=== PATIENT | male | born 1960 ===

== ENCOUNTER 2023-10-30 14:53 | Emergency (ER) | payer OTHER, SELFPAY ==
[2023-10-30] VITALS (7 sets, daily range): BP systolic 112–123; BP diastolic 68–78; BMI 24.1
--- NOTE | 2023-10-30 14:57 | ED.GENMED ---
History of Present Illness
<Christi Pereira [employer]CH[employer] INSERTER - Last Filed: 10/30/23 18:55>
General
Chief Complaint: Chest Pain
Source: patient and ambulance crew
Exam Limitations: none
Time Seen by Provider: 10/30/23 14:56
Nursing documentation reviewed up to this point in time: agreed with
History of Present Illness
History of Present Illness:
63 yo male w h/o NIDDM presents from home via [facility] for chest pain. States at 12 noon he had 9/10 constant chest pain. Started when walking from car into home, mid chest pain that spread to entire chest area and to his back. EMS gave NTG x 1 tab and
324 mg baby asa en route and pt states pain is now only in mid chest 09/24. Denies n/v/d/c. Denies SOB. Denies feeling lightheaded, dizzy, denies weakness, numbness, tingling in extremities.
Past History
<Christi Pereira, [employer] INSERTER - Last Filed: 10/30/23 18:55>
Past History
ED Past Medical History: NIDDM and Other (currently being worked up for 'very small' kidney lesion/mass)
Social History
Tobacco: Non-smoker
Alcohol: None
Personal:
Living: with family
Employment: Retired
Review of Systems
<Christi Pereira, [employer] INSERTER - Last Filed: 10/30/23 18:55>
Review of Systems
Allergies reviewed?: Yes
All Other Systems: ROS reviewed and negative except as documented in HPI and ROS
Constitutional: Denies fever or fatigue
EENT: Denies sore throat
Respiratory: Denies trouble breathing
Cardiac: Reports chest pain and diaphoresis (skin moist on arrival); Denies palpitations or syncope
ABD/GI: Denies abdominal pain, nausea, vomiting or diarrhea
: Denies dysuria, difficulty voiding or urgency
Musculoskeletal: Reports no symptoms; Denies edema
Skin: Reports no symptoms
Neurological: Reports no symptoms
Phy Exam
<Christi Pereira, [employer] INSERTER - Last Filed: 10/30/23 18:55>
Physical Exam
Physical Exam:
GENERAL: No acute distress. A&Ox3.
CONSTITUTIONAL: Afebrile.
EYES: clear, conjunctivae normal
Neck: Supple
ENMT: moist mucus membranes, Pharynx nl
RESPIRATORY: Regular respirations, nonlabored, lungs clear.
CARDIOVASCULAR: Regular rate and rhythm, no murmurs, no rubs.
GI: Soft, nontender, normal BS
MUSCULOSKELETAL: Moves with ease. Well perfused.
SKIN: Warm, moist, normal.
PSYCH: Normal mood and affect. Well kept, interactive and appropriate
NEUROLOGIC: Awake, alert and oriented. No focal neurological deficits
Scores
<Christi Pereira, [employer] INSERTER - Last Filed: 10/30/23 18:55>
Heart Score for Chest Pain Patients
STEMI patient?: Not applicable
Course
<Christi Pereira, [employer] INSERTER - Last Filed: 10/30/23 18:55>
Orders/Labs/Results
Orders:
Orders
10/30/23 14:57
Electrocardiogram (*1) Stat
Reason for Study: Other
Other Reason for Exam: chest pain
EKG- Treatment ONCE
CR Chest - 2 Views Urgent
Comment:
Reason For Exam: chest pain
10/30/23 15:05
Complete Blood Count/With Diff Urgent
Comprehensive Metabolic Panel Urgent
NT-proBNP Urgent
PTT Urgent
Prothrombin Time Urgent
TSH Urgent
Troponin I Urgent
10/30/23 15:46
0.9% Sodium Chloride 1000 ml [Nss] 1,000 ml IV BOLUS
10/30/23 15:50
Mag Hydrox/Al Hydrox/Simeth [Maalox] 30 ml Phenobarb/Hyoscy/Atropine/Scop [] 10 ml Viscous Lidocaine 2% [Xylocaine Viscous Cup] 10 ml PO NOW
10/30/23 15:52
EKG- Treatment ONCE
Mag Hydrox/Al Hydrox/Simeth [Maalox] 30 ml .ROUTE .STK-MED ONE
Phenobarb/Hyoscy/Atropine/Scop [] 10 ml .ROUTE .STK-MED ONE
Viscous Lidocaine 2% [Xylocaine Viscous Cup] 15 ml .ROUTE .STK-MED ONE
10/30/23 16:56
Electrocardiogram (*1) Urgent
Reason for Study: Chest Pain
EKG- Treatment ONCE
10/30/23 17:01
Morphine Sulfate 2 mg IV NOW STA
10/30/23 17:35
Sucralfate [Carafate] 1 gram PO NOW STA
10/30/23 17:37
Pantoprazole [Protonix IV] 40 mg IV NOW STA
10/30/23 17:43
Troponin I Urgent
10/30/23 17:45
Electrocardiogram (*1) Urgent
Reason for Study: Chest Pain
10/30/23 18:54
Sucralfate [Carafate] 1 gram PO NOW STA
Abnormal Lab Results
10/30/23
15:05
Absolute Monos (auto) 0.7 H 10^3/uL
(0.1-0.6)
BUN 24 H mg/dl
(9-20)
Glucose 157 H mg/dl
(70-99)
Total Bilirubin 1.7 H mg/dl
(0.2-1.3)
10/30/23 15:05
10/30/23 15:05
Vital Signs
Initial and Last Documented VS:
Initial Vital Signs
Temp Pulse Resp BP Pulse Ox
98.8 F 88 20 122/78 94
10/30/23 14:58 10/30/23 14:58 10/30/23 14:58 10/30/23 14:58 10/30/23 14:58
Last Documented Vital Signs
Temp Pulse Resp BP Pulse Ox
98.8 F 67 19 114/73 97
10/30/23 14:58 10/30/23 18:30 10/30/23 18:30 10/30/23 18:00 10/30/23 18:30
<Elvia Mason MD - Last Filed: 10/30/23 17:35>
Orders/Labs/Results
Orders:
Orders
10/30/23 14:57
Electrocardiogram (*1) Stat
Reason for Study: Other
Other Reason for Exam: chest pain
EKG- Treatment ONCE
CR Chest - 2 Views Urgent
Comment:
Reason For Exam: chest pain
10/30/23 15:05
Complete Blood Count/With Diff Urgent
Comprehensive Metabolic Panel Urgent
NT-proBNP Urgent
PTT Urgent
Prothrombin Time Urgent
TSH Urgent
Troponin I Urgent
10/30/23 15:46
0.9% Sodium Chloride 1000 ml [Nss] 1,000 ml IV BOLUS
10/30/23 15:50
Mag Hydrox/Al Hydrox/Simeth [Maalox] 30 ml Phenobarb/Hyoscy/Atropine/Scop [] 10 ml Viscous Lidocaine 2% [Xylocaine Viscous Cup] 10 ml PO NOW
10/30/23 15:52
EKG- Treatment ONCE
Mag Hydrox/Al Hydrox/Simeth [Maalox] 30 ml .ROUTE .STK-MED ONE
Phenobarb/Hyoscy/Atropine/Scop [] 10 ml .ROUTE .STK-MED ONE
Viscous Lidocaine 2% [Xylocaine Viscous Cup] 15 ml .ROUTE .STK-MED ONE
10/30/23 16:56
Electrocardiogram (*1) Urgent
Reason for Study: Chest Pain
EKG- Treatment ONCE
10/30/23 17:01
Morphine Sulfate 2 mg IV NOW STA
10/30/23 17:35
Sucralfate [Carafate] 1 gram PO NOW STA
10/30/23 17:37
Pantoprazole [Protonix IV] 40 mg IV NOW STA
10/30/23 17:43
Troponin I Urgent
10/30/23 17:45
Electrocardiogram (*1) Urgent
Reason for Study: Chest Pain
10/30/23 18:54
Sucralfate [Carafate] 1 gram PO NOW STA
Abnormal Lab Results
10/30/23
15:05
Absolute Monos (auto) 0.7 H 10^3/uL
(0.1-0.6)
BUN 24 H mg/dl
(9-20)
Glucose 157 H mg/dl
(70-99)
Total Bilirubin 1.7 H mg/dl
(0.2-1.3)
10/30/23 15:05
10/30/23 15:05
Vital Signs
Initial and Last Documented VS:
Initial Vital Signs
Temp Pulse Resp BP Pulse Ox
98.8 F 88 20 122/78 94
10/30/23 14:58 10/30/23 14:58 10/30/23 14:58 10/30/23 14:58 10/30/23 14:58
Last Documented Vital Signs
Temp Pulse Resp BP Pulse Ox
98.8 F 67 19 114/73 97
10/30/23 14:58 10/30/23 18:30 10/30/23 18:30 10/30/23 18:00 10/30/23 18:30
<Christi Pereira [employer]ERTER - Last Filed: 10/30/23 18:55>
MDM/Problems Addressed
Differential Diagnosis Includes:
ACS, Unstable angina, GERD, Esophageal spasms
MDM/Problems Addressed:
63 yo male w h/o NIDDM presents from home via [facility] for chest pain. States at 12 noon he had 9/10 constant chest pain. Started when walking from car into home, mid chest pain that spread to entire chest area and to his back. EMS gave NTG x 1 tab and
324 mg baby asa en route and pt states pain is now only in mid chest 09/24. Denies n/v/d/c. Denies SOB. Denies feeling lightheaded, dizzy, denies weakness, numbness, tingling in extremities.
EKG Sinus bradycardia
In further conversation with son and pt, pt had 'shaking' episode one month ago and went to [place] where he was admitted and found to have a 'very small mass' on one of his kidneys, concern for malignancy, pt had MRI out pt 3 days ago, no results
yet, has f/u appointment with Urology Dr. Herrera next week
3:50 p.m.
Pt states mid CP now /, back pain 'almost gone.' Son wonders if we should give pt something for pain. Pt refusing Tylenol. GI cocktail ordered.
CBC normal
CMP with no clinically significant abnormality, Mildly elevated BUN IVF's ordered for mild dehydration
TSH WNL
4:55 PM:
GI cocktail improved pain down to 2/10 but patient states pain is coming back now. EKG ordered
In to re evaluate pt. He is rubbing chest and wincing in pain.
EKG unchanged
Morphine 2 mg IV given and pain relieved back to 310.
VSS during episodes
5:30 p.m.
Case discussed with Dr. Mason who examined pt.
CXR NAD
Plan: If Carafate and Protonix helps, CP gone, Troponin #2 normal, DC with referral for GI follow up, rx for Carafate and Protonix
If CP remains, admit
This plan explained to pt and family and they are in agreement
6:00 p.m.
EKG #3 unchanged
Troponin #2 normal
Pt states after Carafate and Protonix pain is completely gone.
He and family are comfortable going home to follow up with GI
Rx for Protonix and Carafate sent to his pharmacy.
Most likely esophageal spasms
Carafate 1 GM given to take tonight
Chronic conditions affecting care: DM
<Christi Pereira NP - Last Filed: 10/30/23 18:55>
*EKG
EKG Intrepretation Date: 10/30/23
Interpretation: normal
Heart Rate: 85
Rate: normal
Rhythm: sinus
[place]: normal axis
Interval: normal interval
QRS Pattern: normal QRS
Ischemia: no ischemia
*Critical Care Note
Total Time (30-74mins, 75-104mins- exclusive of procedures): Not Applicable
ED Attending Note
<Christi Pereira [employer]ERTER - Last Filed: 10/30/23 18:55>
-
Portions of this chart may have been created with voice recognition software.� Occasional wrong word or��sound alike� substitutions may have occurred due to the inherent limitations of voice recognition software.
<Elvia Mason MD - Last Filed: 10/30/23 17:35>
ED Attending Note
Patient seen and examined by attending physician: Yes
I performed the substantive portion of visit, reviewed & personally made and approve the management plan that is documented in note by myself or STAR.: Yes
ED Attending Note:
On exam, patient appears nontoxic and is conversational. He describes central chest pain since noon today that has never once gone away completely. He reports the first 2 hours were intense and relieved with nitroglycerin and aspirin down to a
mild discomfort. He reports the discomfort then intensified and once again improved with being given morphine. First troponin is normal. EKG appears nonischemic. We will do a second troponin. The second troponin is normal, patient will be
reassessed. If he is still having pain, I feel patient should be brought in under the hospitalist service given all his risk factors. If he is pain-free, we could certainly consider sending him home for close cardiology follow-up.
Discharge Plan
Departure
Patient Disposition: Home (Routine Discharge)
Date of Disposition: 10/30/23
Time of Disposition: 18:34
Patient with high blood pressure during this ER visit?: No
Condition: Good
Discharge Problem:
Acute epigastric pain
Instructions: Esophagitis, Acid reflux and GERD in adults
Prescriptions:
New
sucralfate [Carafate] 1 gram tablet
1 g PO ACHS Qty: 30 0RF
pantoprazole [Protonix] 40 mg tablet,delayed release (DR/EC)
40 mg PO DAILY Qty: 30 0RF
aspirin 81 mg tablet,delayed release (DR/EC)
81 mg PO DAILY Qty: 30 0RF
Referrals:
Sadiq Goldman, DO [Family Provider] - As needed
Isabel Alvarez MD [Active] - Next open appointment
Activity Restrictions/Additional Instructions:
As we discussed, in your workup today, there is no indication of damage to your heart specifically no indication of heart attack or your pain being caused by your heart.
Your pain was much relieved after the Carafate and Protonix
I believe you are having esophageal spasms and possibly reflux
I sent a prescription to your pharmacy for the Carafate and Protonix and Baby Aspirin
Take your morning medication including the Protonix then wait an hour and then take the Carafate before your morning meal
Take the Carafate 1/2-hour before each meal and at bedtime
Do this routine for 1 week
Call and make an appointment with the GI doctor, let the GI doctor know if this routine helped your symptoms
If you cannot get into see a GI doctor within the next month, see your primary doctor to discuss if you should get a renewal on the prescriptions for Carafate and Protonix
Interventions
Interventions:
*Risk Screen - Suicide Last Done: 10/30/23 14:59
*General Assessment Last Done: 10/30/23 14:59
*Neglect/Abuse Screening Last Done: 10/30/23 14:59
*ED COVID-19 Vaccine History Last Done: 10/30/23 14:59
ED- Cardiac Assessment Last Done: 10/30/23 14:59
Discharge Date and Time
Print Language: SAUDI ARABIAN
[2023-10-30 15:15] LABS: % Basophils 0.5 % (0-2); % Eosinophils 2.5 % (0-6); % Immature Granulocytes 0.3 % (0-0.5); % Lymphocytes 26.9 % (20.5-51.1); % Monocytes 7.1 % (1.7-9.3); % Neutrophils 62.7 % (42.2-75.2); Absolute Basophils 0.1 10^3/uL (0-0.2); Absolute Eosinophils 0.2 10^3/uL (0-0.7); Absolute Lymphocytes 2.6 10^3/uL (1.2-3.4); Absolute Monocytes 0.7 10^3/uL (0.1-0.6); Absolute Neutrophils 6.1 10^3/uL (1.4-6.5); Hematocrit 41.2 % (39.0-52.0); Hemoglobin 14.6 g/dL (13.0-18.0); Mean Corp Hgb Conc. 35.4 g/dL (33.0-37.0); Mean Corpuscular Hgb 28.4 pg (27.0-31.0); Mean Corpuscular Volume 80.2 fL (80.0-94.0); Mean Platelet Volume 8.9 fL (7.4-10.4); Nucleated Red Blood Cells % 0 % (-); Platelet Count 226 10^3/uL (130-400); Red Blood Cell Count 5.14 10^6/uL (4.70-6.10); Red Cell Dist. Width 11.9 % (11.5-14.5); White Blood Cell Count 9.7 10^3/uL (4.8-10.8)
[2023-10-30 15:26] LABS: APTT 30.4 Sec (23.4-35.0); INR 1.02; PT 13.2 Sec (11.4-14.6)
[2023-10-30 15:38] LABS: ALT (SGPT) 18 U/L (0-50); AST (SGOT) 20 U/L (17-59); Albumin 4.5 g/dl (3.5-5.0); Alkaline Phosphatase 68 U/L (38-126); Blood Urea Nitrogen 24 mg/dl (9-20); Carbon Dioxide 22 mmol/L (22-30); Chloride 104 mmol/L (98-107); Estimated Creatinine Clearance 68 ml/min; Glucose 157 mg/dl (70-99); Potassium 3.9 mmol/L (3.5-5.1); Sodium 140 mmol/L (135-145); Total Bilirubin 1.7 mg/dl (0.2-1.3); Total Protein 6.7 g/dl (6.3-8.2); eGFR > 60.00
[2023-10-30 15:43] LABS: NT-proBNP 38.2 pg/ml; Troponin I < 0.012 ng/ml
[2023-10-30] MEDS: NSS 1000 IV (15:49)
[2023-10-30] MEDS: MAALOX 50 PO (15:55)
[2023-10-30 16:19] LABS: TSH 1.64 uIU/ml (0.47-4.68)
[2023-10-30] MEDS: MORPHINE SULFATE 2 MG IV (17:13)
[2023-10-30] MEDS: CARAFATE 1 GRAM PO ×2 (17:42→18:57)
[2023-10-30] MEDS: PROTONIX IV 40 MG IV (17:42)
[2023-10-30 18:14] LABS: Troponin I < 0.012 ng/ml
== END 2023-10-30 19:00 | disposition home or self-care (01) ==
LOC: EMR 14:53
PROVIDERS: Registered Nurse; EMERGENCY PHYSICIAN Emergency Medicine; FAMILY PHYSICIAN Family Medicine
DX: R10.13 Epigastric pain (principal)
CPT/HCPCS: 99285; 96374; 96375; 96361; 71046; 80053; 83880; 84443; 84484; 85025; 85610; 85730; 93005